=== PATIENT | male | born 1960 | race Caucasian/White ===

== ENCOUNTER 2017-01-25 21:11 | Inpatient (IN) | payer BC ==
--- NOTE | ~2017-01-25 | DS ---
Discharge Summary [facility] [address] [place]. [address] NAME: MARLON COBOS : 58 STATUS : DIS IN PAT#: [id number] AGE: 57 ADM/REG DATE : 01/25/17 MR#: [id number] REPORT SERV DATE: 01/29/17 DICTATED BY: KATRIN GAN DATE: 01/28/17 REPORT STATUS : Draft TRANSCRIBED BY: MODL DATE: 01/28/17 ADMISSION DATE: 01/25/2017 DISCHARGE DATE: 01/28/2017 HOSPITAL COURSE: A 57-year-old very pleasant obese male with known history of prior DVT and PE, has been therapeutic on his Coumadin anticoagulation, INR has not been below 2 at any time in the last three months per the patient. Known additional history of smoking in the past. Has not quit. Diabetes, non-insulin dependent. The patient came in with significant right lower extremity pain, erythema, hot to the touch. Chuckey to have cellulitis. Placed on IV Zosyn. Does have some onychomycosis. Does need to seek outpatient antifungal topical first, then try oral, but would prefer to use conservative measures first with topical antifungal. Educated the patient about that. The patient unfortunately was not found to have a DVT despite being on therapeutic anticoagulation on Coumadin, found acute-appearing DVT sitting throughout right femoral popliteal and posterior tibial. The patient, as a result of some tachycardia, got a CTA on chest and unfortunately did find a small likely acute segmental pulmonary emboli, posterolateral basal right lower lobe branch, . Had a CT of abdomen and pelvis to rule out any neoplastic concern, none was found. There is a nonspecific mild splenomegaly, bilateral nonobstructive nephrolithiasis. Consider possible outpatient Beelith therapy. [facility] evaluated the patient regarding this recurrent DVT, PE despite full dose anticoagulation, switched from IV heparin to Lovenox 1 mg/kg subcu b.i.d. over the next six weeks. Recommend repeating Doppler ultrasound right lower extremity and CT of the chest in five weeks, see me after that to make decision regarding changing from Lovenox to possibly Eliquis. I went ahead and ordered prothrombin gene mutation, factor V Leiden, DANILO, antiphospholipid, anticardiolipin, this is all pending; however the DANILO is 1:320 at this time with a titer. The patient is amenable for discharge. So, switched him over to oral Omnicef from IV Rocephin from IV Zosyn. Florastor to reduce the risk of C diff and SIRS criteria. Panculture was negative. Procalcitonin was trending down, 0.25. The patient did not want an IVC filter after being seen by Dr. Boyle with Vascular Surgery in the setting of prior DVT and PE despite INR 2.6. Prospects for IVC filter as well as percutaneous thrombectomy and thrombolysis were explained to him as this is the standard of care, do not seem very interested. The patient did not. He understands he needs at least two years of compression therapy with Alexis bandage. He is leaning away from intervention and he will call Dr. Boyle as an outpatient. We will have him follow up anyway in three to five weeks. Follow up with Vascular Surgery in three to five weeks. Follow up with [facility] in three to four weeks, Dr. Fuentes. Follow up with PCP in two weeks. Discharged home. Home Health management. Compression stockings. Alexis wrap per Vascular Surgery. Rolling walker if desired. Case Management for medication assistance. Please ensure has at least one day of Lovenox prior to discharge. We will also get outpatient right lower extremity ultrasound, CT of the chest regarding VTE. Discharge Summary [address] [place]. [address] NAME: MARLON COBOS : 58 STATUS : DIS IN PAT#: [id number] AGE: 57 ADM/REG DATE : 01/25/17 MR#: [id number] REPORT SERV DATE: 01/29/17 DICTATED BY: KATRIN GAN DATE: 01/28/17 REPORT STATUS : Draft TRANSCRIBED BY: MODAnt DATE: 01/28/17 DISCHARGE MEDICATIONS: Aspirin 81 p.o. daily, as well as Januvia 100 p.o. q.a.m., as well as Omnicef 300 p.o. b.i.d. for nine more days, as well as Lovenox 140 mg subcu b.i.d. only take that continuously at this time to possibly with Eliquis, niacin 250 p.o. q.h.s., Florastor one capsule p.o. b.i.d. for duration of antibiotics, simvastatin 40 p.o. daily, Spiriva 18 mcg capsule one inhaled daily for clinical COPD, metformin 500 p.o. q.h.s. PROCEDURES: None. CONSULTS: Vascular Surgery and [facility] Hematology. DISCHARGE DIAGNOSES: See above including venous thromboembolism, pulmonary embolus, and small right lower extremity deep vein thrombosis despite full-dose anticoagulation. Hypercoagulable workup is pending. Likely, will need an early colonoscopy. Defer to his PCP. Clinical chronic obstructive pulmonary disease, diabetes, systemic inflammatory response syndrome, right leg cellulitis. All questions were answered. Took well over 30 minutes to do. DOMINIC/MARKO Katrin Gan DO / [id number] CC: DO Hillary King M.D.
--- NOTE | ~2017-01-25 | HP ---
History And Physical [facility] [address] [place]. [address] NAME: MARLON COBOS : 58 STATUS : ADM IN [facility]#: [id number] AGE: 57 ADM/REG DATE : 01/25/17 MR#: [id number] REPORT SERV DATE: 01/26/17 DICTATED BY: YONATAN HOWELL DATE: 01/26/17 REPORT STATUS : Draft TRANSCRIBED BY: MODL DATE: 01/26/17 DATE OF ADMISSION: 01/25/2017 CHIEF COMPLAINT: Right leg swelling and pain. HISTORY OF PRESENT ILLNESS: This is a 57-year-old male with a history of prior DVT and pulmonary embolism, currently on warfarin for anticoagulation, who presents to the emergency room at [facility] with the above-mentioned complaint. History is obtained from the patient, his sister, and her who are at bedside, and reviewing data available on the GoTable system. According to the patient and his sister, he had been in his usual state of health until last Tuesday when he noticed some pain in his upper thigh and swelling and redness in his right leg since then. Symptoms, however, got worse, swelling in his feet increased to almost being tense, and he started having pain as well. They finally decided to come to the emergency room to be evaluated as he does have history of prior deep venous thrombosis and pulmonary embolism. In the emergency room, initial workup including ultrasound of his lower extremity showed extensive clot below the common femoral in the right leg. Hospitalist Service is asked to admit him for further evaluation and treatment. At the time of my evaluation, he denied any chest pain or palpitations. He had no orthopnea. No history of recent cough, hemoptysis, night sweats, or weight loss. He has not had any falls or loss of consciousness. No history of recent fevers, chills, nausea, vomiting, diarrhea, hematemesis, hematochezia. No history of recent travel or exposures. PAST MEDICAL HISTORY: Significant for history of prior deep venous thrombosis and pulmonary embolism, currently on anticoagulation with warfarin; history of diabetes mellitus type 2. SOCIAL HISTORY: He has about a 40-pack year history of smoking, although he quit 20 years ago. He denies alcohol use or recreational drug use. He used to work in [employer]. FAMILY HISTORY: Noncontributory. MEDICATIONS: At home were reviewed by me in the chart today and reordered by me. REVIEW OF SYSTEMS: As in history of present illness. All other systems are reviewed in detail and quite unremarkable. PHYSICAL EXAMINATION: GENERAL: This is a very pleasant 57-year-old, not in any acute distress. He is alert, awake, oriented to time, place, and person. HEENT: His head is atraumatic, normocephalic. His pupils are equal, reacting to light and accommodating. External ocular muscles are intact. Membranes are moist and pink. Sclerae History And Physical [address] [address] NAME: MARLON COBOS : 58 STATUS : ADM IN [facility]#: [id number] AGE: 57 ADM/REG DATE : 01/25/17 MR#: [id number] REPORT SERV DATE: 01/26/17 DICTATED BY: YONATAN HOWELL DATE: 01/26/17 REPORT STATUS : Draft TRANSCRIBED BY: MODL DATE: 01/26/17 nonicteric. NECK: Supple with no jugular venous distention, lymphadenopathy, or thyromegaly. LUNGS: Clear to auscultation. There were no wheezes, rubs, or crackles. HEART: The heart sounds were regular with no murmurs, rubs, or gallops. ABDOMEN: Protuberant, soft, nontender. Bowel sounds are present. EXTREMITIES: Especially on the right side showed increased girth compared to the left. There is tenderness to palpation and increased warmth. NEUROLOGIC: Appeared to be grossly intact. No focal sensory or motor deficits. Higher functions appeared intact. VITAL SIGNS: His vital signs today showed a temperature of 98.2, pulse was 98, respirations were 16 a minute, and blood pressure upon arrival was 140/72, oxygen saturations were 95% breathing 2 L of oxygen via nasal cannula. LABORATORY DATA: Reviewed on the GoTable system showed a sodium of 138, potassium was 3.8, chloride 105, and CO2 of 25, BUN was 18 with a creatinine of 0.86, and blood glucose was 117. CBC showed a white blood cell count of 15,400, hemoglobin was 17.6, hematocrit 52.1, and platelet count was 173,000. His prothrombin time today was 25.3 with an INR of 2.3. Ultrasound of the right lower extremity showed extensive clot below the common femoral. IMPRESSION: 1. Right lower extremity swelling. 2. Acute right lower extremity deep venous thrombosis. 3. History of prior deep venous thrombosis and pulmonary embolism, on anticoagulation. 4. Leukocytosis. 5. Diabetes mellitus type 2. PLAN: We will admit Mr. Cobos to the Hospitalist Service with telemetry for close monitoring. We will start him on heparin infusion per protocol and hold his warfarin at this time. Go ahead and consult Vascular Surgery to see him in the morning. Apparently, the ER spoke with Vascular Surgery tonight. We will go ahead and check his prothrombin time in the morning as well. We will obtain cultures, start him on empiric IV antibiotics with Zosyn, follow blood cultures, and proceed accordingly. We will also control blood sugars with NovoLog given subcutaneously per sliding scale and check his A1c. I have discussed the above plans with the patient. His questions were answered and he is agreeable to the above recommendations. Hospitalist Service will be following him during his stay here. /MARKO Yonatan Howell M.D. / [id number] CC: Dmitry Tavares, History And Physical [address] [address] NAME: MARLON COBOS : 58 STATUS : ADM IN [facility]#: [id number] AGE: 57 ADM/REG DATE : 01/25/17 MR#: [id number] REPORT SERV DATE: 01/26/17 DICTATED BY: YONATAN HOWELL DATE: 01/26/17 REPORT STATUS : Draft TRANSCRIBED BY: MARKO DATE: 01/26/17 Hillary Riojas M.D.
--- NOTE | ~2017-01-25 | CN ---
Consultation Report [facility] [address] [place]. [address] NAME: MARLON COBOS : 58 STATUS : ADM IN PAT#: [id number] AGE: 57 ADM/REG DATE : 01/25/17 MR#: [id number] REPORT SERV DATE: 01/28/17 DICTATED BY: POLO BOYLE DATE: 01/26/17 REPORT STATUS : Draft TRANSCRIBED BY: MODAnt DATE: 01/26/17 CONSULT NOTE DATE OF CONSULTATION: 01/26/2017 REASON FOR CONSULTATION: DVT with PE despite anticoagulation. BRIEF HISTORY: The patient is a 57-year-old gentleman with a past medical history significant for obesity as well as a remote history of DVT with PE. He was treated with anticoagulation and has actually remained on anticoagulation for many years. There was no obvious inciting event for his DVT previously other than the fact that he was sedentary. He came into the hospital with right lower extremity swelling for the past few days. He was found to have a DVT with PE. He was switched from Coumadin to a heparin drip. A Hematology evaluation was obtained. I was consulted for further evaluation and treatment. The patient complains of right lower extremity swelling. He says that he has had swelling for a while and actually wears knee-high compression stockings that he got from [employer]. He had to have some custom-made compression stockings according to him. He says that he usually wears them. He denies any other complaints. He denies anything that sounds like ischemic rest pain or claudication. He denies any family history of clotting disorders. He had his last colonoscopy about seven years ago. He denies any other malignancies and seems to think that he is in relatively good health. He says that his diabetes is well controlled and follows up regularly with his primary care physician. PAST MEDICAL HISTORY: DVT with PE and diabetes. SURGICAL HISTORY: Colonoscopy. SOCIAL HISTORY: He has a 47-[id number]-norq history of smoking, although he quit 20 years ago. Denies any alcohol or drug use. FAMILY HISTORY: Noncontributory. MEDICATIONS: Documented on the chart and were reviewed. REVIEW OF SYSTEMS: A complete review of systems was performed and is negative with the exception of aforementioned findings. PHYSICAL EXAMINATION: VITAL SIGNS: Documented on the chart and were reviewed. GENERAL: The patient is awake, alert, and oriented. No apparent distress. HEAD AND NECK: Benign without any carotid bruits. HEART: Regular rate and rhythm. LUNGS: Clear. Consultation Report [facility] [id number] [place]. [address] NAME: MARLON COBOS : 58 STATUS : ADM IN PAT#: [id number] AGE: 57 ADM/REG DATE : 01/25/17 MR#: [id number] REPORT SERV DATE: 01/28/17 DICTATED BY: POLO BOYLE DATE: 01/26/17 REPORT STATUS : Draft TRANSCRIBED BY: MARKO DATE: 01/26/17 ABDOMEN: Soft, nontender, nondistended with a nonaneurysmal aorta. He had a normal complement of upper extremity pulses without any significant edema or ischemic ulcerations. He has palpable femoral pulses. I am pretty sure that I can feel popliteal pulses. I do not feel pedal pulses, but he does have bilateral lower extremity edema. His right leg is markedly more swollen than the left. He has chronic venous stasis changes to his right leg. He has no varicosities or ulcerations. NEUROLOGIC: Grossly nonfocal. MUSCULOSKELETAL: Otherwise benign. LABORATORY DATA: His laboratory investigations are fairly unremarkable. I reviewed his venous duplex results as well as his CT imaging. He has an extensive right lower extremity DVT that appears to be rather acute. It looks like he has also had a PE. ASSESSMENT AND PLAN: It looks like this gentleman has a relatively new-onset deep venous thrombosis with pulmonary embolism. This is in the setting of a prior deep venous thrombosis and pulmonary embolism. He has had this despite an INR of 2.6, which is therapeutic anticoagulation. I talked to him about the natural history of DVTs. I talked to him about the risks, benefits, and alternatives of IVC filter placement as well as percutaneous thrombectomy and thrombolysis. I explained that he has demonstrated failure of medical management of his DVT and this traditionally cause for a non-retrievable IVC filter placement. In fact, I emphasize that this is the standard of care. He did not seem very interested in this. I explained his risk of lifelong leg swelling and ulceration. He understands risk of pain. He is leaning away from a percutaneous thrombectomy and thrombolysis of his leg. He understands that he needs at least two years of compression therapy and I have asked the nurse to wrap his leg with an Alexis bandage. I have given him instructions on the length of compression stockings as well as the degree of compression. I would actually recommend lifelong compression therapy for him. Once again, I emphasize the traditional standard of placing an IVC filter in this type of scenario, although I did go over the risks of this. He wants to think about it. He is leaning away from intervention and so, he will actually call me if he changes his mind. MAIL PROCESSING MACHINE OPERATOR/MODL Polo Boyle M.D. / [id number] CC: DO Hillary King M.D. Mani Ravee, M.D.
--- NOTE | ~2017-01-25 | CN ---
Consultation Report [facility] [address] [place]. [address] NAME: MARLON COBOS : 58 STATUS : ADM IN PAT#: [id number] AGE: 57 ADM/REG DATE : 01/25/17 MR#: [id number] REPORT SERV DATE: 01/27/17 DICTATED BY: BERNABE TOUSSAINT DATE: 01/26/17 REPORT STATUS : Draft TRANSCRIBED BY: MODL DATE: 01/26/17 CONSULTATION NOTE DATE OF CONSULTATION: REASON FOR CONSULTATION: DVT and PE. HISTORY: Mr. Cobos was admitted here on 01/25/2017 because of right leg swelling and pain, which have been going on for several days. He denied any history of injury or prior DVT in this location. He had had a pulmonary embolism back in 2008 and has been on chronic warfarin since that time. Dr. Riojas has been monitoring his INR, which is almost always in a good therapeutic range, rarely dropping below 2.0 and not dropping below 2.0 in the last few weeks. He denies any recent shortness of breath, cough, or hemoptysis. He denies any history of heart disease or myocardial infarction. He had not had a prior DVT despite the prior history of PE dating back to 2008. 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 He has had weight loss over the last year, which has been purposeful and his exercise has increased in relation to his diet and weight loss regime. He denies any back pain, abdominal pain, or any sign of blood in stools. He does state he is due for another colonoscopy. FAMILY HISTORY: Negative for any family members with DVT, pulmonary embolism, or sudden unexpected . PAST MEDICAL AND SURGICAL HISTORY: Significant for pulmonary embolism in 2008 with no evidence of any DVT. Diabetes mellitus type 2, hypercholesterolemia. MEDICATIONS: His medications prior to admission included baby aspirin 81 mg daily, ibuprofen p.r.n., niacin, simvastatin, Januvia, metformin, warfarin. ALLERGIES: HE HAS NO KNOWN DRUG ALLERGIES. SOCIAL HISTORY: He previously smoked cigarettes about 81-iuts-iehw history, but quit 20 years ago. Denies any alcohol or illicit drug use. He works in the [employer] department at [employer]. FAMILY HISTORY: Negative for clotting disorders, pulmonary embolism, or sudden unexpected . REVIEW OF SYSTEMS: Are as per HPI. Otherwise, 13-point review of systems unremarkable and/or negative. PHYSICAL EXAMINATION: VITAL SIGNS: Currently afebrile with normal vital signs. GENERAL: He is a well-developed, well-nourished man, alert and oriented x3, in no acute Consultation Report [facility] [address] [place]. [address] NAME: MARLON COBOS : 58 STATUS : ADM IN PAT#: [id number] AGE: 57 ADM/REG DATE : 01/25/17 MR#: [id number] REPORT SERV DATE: 01/27/17 DICTATED BY: BERNABE TOUSSAINT DATE: 01/26/17 REPORT STATUS : Draft TRANSCRIBED BY: MARKO DATE: 01/26/17 distress. HEENT: With NC/AT. Sclerae anicteric. Oropharynx without bleeding. NECK: No JVD or adenopathy. HEART: Regular rate and rhythm without murmurs. LUNGS: Clear to auscultation and percussion. ABDOMEN: Morbidly obese with active bowel sounds. Soft and nontender. No palpable organomegaly or masses. EXTREMITIES: Left lower extremity without any edema or erythema. Right lower extremity reveals moderate induration of the entire calf below the knee with some purplish discoloration of the anterior distal calf, but otherwise, skin is pink and not fluctuant with good distal pulses. Homans sign is negative. LABORATORY DATA: Labs reviewed. CTA reviewed. Ultrasound Doppler of right lower extremity reviewed. IMPRESSION: Acute deep vein thrombosis with pulmonary emboli. Pulmonary emboli with low burden of clots. Deep vein thrombosis of the right leg moderately extensive, but no compromise of arterial blood flow. Now receiving intravenous heparin and warfarin discontinued. INR was therapeutic at 2.3 even with his acute evidence of deep vein thrombosis and pulmonary embolus. RECOMMENDATIONS: Would be to continue with IV heparin for now and then plan to begin Lovenox 1 mg/kg subcu every 12 hours over the next six weeks. I would recommend repeating a Doppler ultrasound of the right lower extremity and a CTA of the chest in five weeks and see me after that to make a decision regarding changing from low molecular weight heparin possibly to Eliquis. I would recommend trying a different oral agent at that time primarily because this appears to be a failure of warfarin in preventing DVT/PE, as his INR was well therapeutic at the time of developing the new DVT and PE. Fortunately, there is no clinical evidence to suggest malignancy or other etiology for hypercoagulable disorder. The CT does not show any sign of lung tumor or adenopathy. He is due for colonoscopy, but this will need to be delayed until after he comes off the Lovenox and onto the Eliquis in about six weeks. He will need to be educated on self injection of Lovenox prior to discharge. I would recommend beginning Lovenox within the next 24 to 48 hours and trying to discharge the patient within 48 hours as long as his leg is improving and his respiratory condition continues to be stable. BEBE/MARKO Bernabe Toussaint M.D. / [id number] Consultation Report [address] [address] NAME: RICHARDALEJANDROMARLON HELENA : 58 STATUS : ADM IN PAT#: [id number] AGE: 57 ADM/REG DATE : 01/25/17 MR#: [id number] REPORT SERV DATE: 01/27/17 DICTATED BY: BERNABE TOUSSAINT DATE: 01/26/17 REPORT STATUS : Draft TRANSCRIBED BY: MARKO DATE: 01/26/17 CC: DO Hillary King M.D.
[2017-01-25 19:55] LABS: BASOPHILS 0.1 %; BASOPHILS ABSOLUTE 0.02 10/3/uL (0.0-0.16); EOSINOPHILS ABSOLUTE 0.31 10/3/uL (0.0-0.53); ER CBC TAT 0 Hrs 09 Mins; HEMATOCRIT 52.1 % (40.0-51.0); HEMOGLOBIN 17.6 g/dL (13.6-17.8); IMMATURE GRANULOCYTES 0.7 %; IMMATURE GRANULOCYTES ABSOLUTE 0.11 10/3/uL (0.0-0.11); LYMPHOCYTES ABSOLUTE 1.38 10/3/uL (0.67-4.30); MEAN CORPUS HGB CONC 33.8 g/dL (32.0-36.0); MEAN CORPUSCULAR HEMOGLOB 29.4 pg (26.0-34.0); MEAN CORPUSCULAR VOLUME 87.1 fL (80-100); MONOCYTES 3.6 %; MONOCYTES ABSOLUTE 0.55 10/3/uL (0.21-1.20); NEUTROPHILS 84.6 %; PLATELET COUNT 173 10/3/uL (150-400); RED CELL COUNT 5.98 10/6/uL (4.7-6.1); WHITE BLOOD CELLS 15.4 10/3/uL (4.5-10.5)
[2017-01-25 19:56] LABS: MANUAL DIFF NO %
[2017-01-25 20:00] LABS: INTERNATIONAL NORMAL RATI 2.3 UNITS (-)
[2017-01-25 20:02] LABS: PROTIME (NOT ORD) 25.3 SEC (12.0-14.5)
[2017-01-25 20:07] LABS: BUN (BLOOD UREA NITROGEN) 18 MG/DL (6-23); CALCIUM, SERUM 8.6 MG/DL (8.5-10.4); CHLORIDE, SERUM 105 MMOL/L (96-112); CO2 (CARBON DIOXIDE) 25 MMOL/L (24-34); CREATININE 0.86 MG/DL (0.70-1.30); GFR AFRICAN AMERICAN 111 ML/MIN (>=60); GFR NON AFRICAN AMERICAN 96 ML/MIN (>=60); GLUCOSE, SERUM 117 MG/DL (60-99); POTASSIUM, SERUM 3.8 MMOL/L (3.5-5.3); SODIUM, SERUM 138 MMOL/L (135-148)
[2017-01-25 20:10] LABS: ANISOCYTOSIS 1+ (5-10/OIF) (0-5/OIF); PLATELET ESTIMATE ADQ (ADEQUATE); TEARDROP SHAPED RBCS FEW (3-10/OIF)
[2017-01-25 20:11] LABS: MICROCYTES 1+ (5-10/OIF) (0-5/OIF); OVALOCYTES 1+ (3-10/OIF) (0-2/OIF)
[~2017-01-25 21:11] MED LIST: ADVIL PO; ASAB PO; C5 PO; GLUCPH PO; JANUVIA100 MG PO; SLO-NIACIN250 MG PO; ZOCOR40 PO
[2017-01-26 05:01] LABS: BASOPHILS 0.2 %; BASOPHILS ABSOLUTE 0.03 10/3/uL (0.0-0.16); EOSINOPHILS 3.2 %; EOSINOPHILS ABSOLUTE 0.45 10/3/uL (0.0-0.53); HEMATOCRIT 51.3 % (40.0-51.0); HEMOGLOBIN 17.2 g/dL (13.6-17.8); IMMATURE GRANULOCYTES 0.9 %; IMMATURE GRANULOCYTES ABSOLUTE 0.13 10/3/uL (0.0-0.11); LYMPHOCYTES 12.5 %; LYMPHOCYTES ABSOLUTE 1.75 10/3/uL (0.67-4.30); MEAN CORPUS HGB CONC 33.5 g/dL (32.0-36.0); MEAN CORPUSCULAR HEMOGLOB 29.2 pg (26.0-34.0); MEAN CORPUSCULAR VOLUME 86.9 fL (80-100); MONOCYTES ABSOLUTE 0.56 10/3/uL (0.21-1.20); NEUTROPHILS 79.2 %; NEUTROPHILS ABSOLUTE 11.08 10/3/uL (2.02-8.40); PLATELET COUNT 216 10/3/uL (150-400); RBC DISTRIBUTION WIDTH 17.2 % (12.0-16.0)
[2017-01-26 05:02] LABS: MANUAL DIFF NO %
[2017-01-26 05:11] LABS: INTERNATIONAL NORMAL RATI 2.3 UNITS (-); PROTIME (NOT ORD) 24.7 SEC (12.0-14.5)
[2017-01-26 05:14] LABS: BUN (BLOOD UREA NITROGEN) 15 MG/DL (6-23); CALCIUM, SERUM 8.6 MG/DL (8.5-10.4); CHLORIDE, SERUM 107 MMOL/L (96-112); CO2 (CARBON DIOXIDE) 25 MMOL/L (24-34); CREATININE 0.89 MG/DL (0.70-1.30); GFR AFRICAN AMERICAN 109 ML/MIN (>=60); GFR NON AFRICAN AMERICAN 94 ML/MIN (>=60); PHOSPHORUS, SERUM 3.7 MG/DL (2.5-4.5); POTASSIUM, SERUM 4.2 MMOL/L (3.5-5.3); SODIUM, SERUM 140 MMOL/L (135-148)
[2017-01-26 05:15] LABS: GLUCOSE, SERUM 145 MG/DL (60-99)
[2017-01-26 06:53] LABS: ANISOCYTOSIS 1+ (5-10/OIF) (0-5/OIF); PLATELET ESTIMATE ADQ (ADEQUATE)
[2017-01-26 06:54] LABS: TEARDROP SHAPED RBCS FEW (3-10/OIF)
[2017-01-27 06:12] LABS: BASOPHILS 0.2 %; BASOPHILS ABSOLUTE 0.02 10/3/uL (0.0-0.16); EOSINOPHILS 3.3 %; EOSINOPHILS ABSOLUTE 0.43 10/3/uL (0.0-0.53); HEMATOCRIT 50.1 % (40.0-51.0); HEMOGLOBIN 16.7 g/dL (13.6-17.8); IMMATURE GRANULOCYTES 0.9 %; IMMATURE GRANULOCYTES ABSOLUTE 0.12 10/3/uL (0.0-0.11); LYMPHOCYTES 11.9 %; LYMPHOCYTES ABSOLUTE 1.58 10/3/uL (0.67-4.30); MEAN CORPUS HGB CONC 33.3 g/dL (32.0-36.0); MEAN CORPUSCULAR HEMOGLOB 29.7 pg (26.0-34.0); NEUTROPHILS 80.7 %; NEUTROPHILS ABSOLUTE 10.68 10/3/uL (2.02-8.40); PLATELET COUNT 232 10/3/uL (150-400); RBC DISTRIBUTION WIDTH 16.9 % (12.0-16.0); RED CELL COUNT 5.63 10/6/uL (4.7-6.1); WHITE BLOOD CELLS 13.2 10/3/uL (4.5-10.5)
[2017-01-27 06:17] LABS: PROTIME (NOT ORD) 22.1 SEC (12.0-14.5)
[2017-01-27 06:19] LABS: MANUAL DIFF NO %
[2017-01-27 06:29] LABS: BUN (BLOOD UREA NITROGEN) 13 MG/DL (6-23); CALCIUM, SERUM 8.5 MG/DL (8.5-10.4); CHLORIDE, SERUM 106 MMOL/L (96-112); CO2 (CARBON DIOXIDE) 23 MMOL/L (24-34); GFR AFRICAN AMERICAN 109 ML/MIN (>=60); GFR NON AFRICAN AMERICAN 94 ML/MIN (>=60); PHOSPHORUS, SERUM 3.8 MG/DL (2.5-4.5); SODIUM, SERUM 139 MMOL/L (135-148)
[2017-01-27 06:35] LABS: GLUCOSE, SERUM 115 MG/DL (60-99); POTASSIUM, SERUM 4.3 MMOL/L (3.5-5.3)
[2017-01-27 07:30] LABS: PLATELET ESTIMATE ADQ (ADEQUATE)
[2017-01-27 07:31] LABS: RBC MORPHOLOGY NORM (NORMAL); TOXIC GRANULATION 1+
[2017-01-28 08:49] LABS: BASOPHILS 0.2 %; BASOPHILS ABSOLUTE 0.03 10/3/uL (0.0-0.16); EOSINOPHILS 3.4 %; EOSINOPHILS ABSOLUTE 0.51 10/3/uL (0.0-0.53); HEMOGLOBIN 16.8 g/dL (13.6-17.8); IMMATURE GRANULOCYTES ABSOLUTE 0.15 10/3/uL (0.0-0.11); LYMPHOCYTES ABSOLUTE 1.18 10/3/uL (0.67-4.30); MEAN CORPUS HGB CONC 32.9 g/dL (32.0-36.0); MEAN CORPUSCULAR HEMOGLOB 29.3 pg (26.0-34.0); MEAN CORPUSCULAR VOLUME 88.9 fL (80-100); MEAN PLATELET VOLUME 10.9 fL (9.2-13.0); MONOCYTES 3.1 %; MONOCYTES ABSOLUTE 0.46 10/3/uL (0.21-1.20); NEUTROPHILS 84.3 %; NEUTROPHILS ABSOLUTE 12.48 10/3/uL (2.02-8.40); PLATELET COUNT 245 10/3/uL (150-400); RBC DISTRIBUTION WIDTH 17.4 % (12.0-16.0); RED CELL COUNT 5.74 10/6/uL (4.7-6.1); WHITE BLOOD CELLS 14.8 10/3/uL (4.5-10.5)
[2017-01-28 08:50] LABS: MANUAL DIFF NO %
[2017-01-28 09:09] LABS: BUN (BLOOD UREA NITROGEN) 12 MG/DL (6-23); CALCIUM, SERUM 8.6 MG/DL (8.5-10.4); CHLORIDE, SERUM 107 MMOL/L (96-112); CO2 (CARBON DIOXIDE) 25 MMOL/L (24-34); GFR AFRICAN AMERICAN 114 ML/MIN (>=60); GFR NON AFRICAN AMERICAN 98 ML/MIN (>=60); GLUCOSE, SERUM 125 MG/DL (60-99); PHOSPHORUS, SERUM 3.6 MG/DL (2.5-4.5); POTASSIUM, SERUM 4.2 MMOL/L (3.5-5.3); SODIUM, SERUM 140 MMOL/L (135-148)
[2017-01-28 12:04] LABS: ANA PATTERN HOMOGENEOUS
[2017-01-28] MEDS ORDERED: LOVENOX150 SC (16:44)
[2017-01-28] MEDS ORDERED: FLORASTOR250 MG PO (16:45)
[2017-01-28] MEDS ORDERED: SPIRIVA INH (16:46)
[2017-01-28] MEDS ORDERED: OMNICEF300 PO (16:47)
[2017-02-02 09:12] LABS: PROTHROMBIN FRAGMENT 1+2 MONOC 167 pmol/L (87-325)
== END 2017-01-28 17:28 | disposition home health service (06) | DRG 299 ==
LOC: ER 21:11 → 1SO 23:40
PROVIDERS: Emergency Medicine; Internal Medicine; Internal Medicine Pulmonary Disease
DX: I82.4Z1 Acute embolism and thrombosis of unspecified deep veins of right distal lower extremity (principal); I26.99 Other pulmonary embolism without acute cor pulmonale; R65.10 Systemic inflammatory response syndrome (SIRS) of non-infectious origin without acute organ dysfunction; L03.115 Cellulitis of right lower limb; E11.9 Type 2 diabetes mellitus without complications; J44.9 Chronic obstructive pulmonary disease, unspecified; N20.0 Calculus of kidney; E78.00 Pure hypercholesterolemia, unspecified; Z79.82 Long term (current) use of aspirin; Z79.01 Long term (current) use of anticoagulants; Z79.84 Long term (current) use of oral hypoglycemic drugs; Z79.899 Other long term (current) drug therapy; Z86.718 Personal history of other venous thrombosis and embolism; Z86.711 Personal history of pulmonary embolism; Z87.891 Personal history of nicotine dependence
CPT/HCPCS: 71275; 74177; 80048; 81241; 82962; 83036; 83520; 83735; 84100; 84145; 85025; 85610; 85730; 86039; 86147; 87040; 93971; 99284; A9270-GY; J2543; Q9967